=== PATIENT | female | born 1955 | race Caucasian/White ===

== ENCOUNTER 2017-06-14 09:51 | Outpatient (CLI) | payer MEDICARE, MEDICAID ==
[2017-06-14 17:56] LABS: BASOPHILS % (AUTO) 0.8 %; EOSINOPHILS # (AUTO) 0.1 10^3/uL (0.0-0.7); EOSINOPHILS % (AUTO) 2.1 %; HCT - HEMATOCRIT 39.4 % (37.0-47.0); HGB - HEMOGLOBIN 13.2 g/dL (12.0-16.0); LYMPHOCYTES # (AUTO) 1.6 10^3/uL (1.5-3.5); LYMPHOCYTES % (AUTO) 32.8 %; MEAN CORPUSCULAR HEMOGLOBIN 30.1 pg (27.0-31.0); MEAN CORPUSCULAR HGB CONC 33.5 g/dL (32.0-36.0); MEAN CORPUSCULAR VOLUME 89.8 fL (81.0-99.0); MEAN PLATELET VOLUME 8.6 fL (7.9-10.8); MONOCYTES # (AUTO) 0.5 10^3/uL (0.0-1.0); MONOCYTES % (AUTO) 9.8 %; NEUTROPHILS # (AUTO) 2.7 10^3/uL (1.5-6.6); NEUTROPHILS % (AUTO) 54.5 %; RED BLOOD COUNT 4.39 10^6/uL (4.20-5.40); RED CELL DISTRIBUTION WIDTH 13.6 % (12.0-15.0); UNCORRECTED WHITE BLOOD COUNT 4.9 x10^3/uL; WHITE BLOOD COUNT 4.9 x10^3/uL (4.8-10.8)
[2017-06-14 18:13] LABS: ALBUMIN/GLOBULIN RATIO 1.8 (1.0-2.2); BILIRUBIN,TOTAL 0.7 mg/dL (0.2-1.0); CALCIUM 9.3 mg/dL (8.5-10.3); CREATININE 0.7 mg/dL (0.4-1.0); POTASSIUM 4.4 mmol/L (3.5-5.0); TOTAL PROTEIN 6.7 g/dL (6.7-8.2)
== END 2017-06-14 09:52 | disposition home or self-care (01) ==
LOC: LAB.S 09:51
PROVIDERS: ATTEND Nurse Practitioner Family
DX: R10.9 Unspecified abdominal pain (principal)
CPT/HCPCS: 36415; 80053; 85025

== ENCOUNTER 2017-09-28 12:10 | Outpatient (CLI) | payer MEDICARE, MEDICAID | END 2017-09-28 12:11 | disposition home or self-care (01) | LOC: RT.S 12:10 | PROVIDERS: ATTEND Nurse Practitioner Family | DX: I34.1 Nonrheumatic mitral (valve) prolapse (principal) | CPT/HCPCS: 93005 ==

== ENCOUNTER 2020-03-11 09:37 | Outpatient (CLI) | payer MEDICARE, MEDICAID | END 2020-03-11 09:38 | disposition home or self-care (01) | LOC: LAB.S 09:37 | PROVIDERS: ATTEND Registered Nurse | DX: J11.1 Influenza due to unidentified influenza virus with other respiratory manifestations (principal) | CPT/HCPCS: 36415; 86769 ==

== ENCOUNTER 2021-03-11 07:39 | Outpatient (CLI) | payer MEDICARE, MEDICAID ==
[2021-03-11 14:45] LABS: BASOPHILS % (AUTO) 0.8 %; EOSINOPHILS % (AUTO) 0.8 %; HCT - HEMATOCRIT 40.4 % (37.0-47.0); HGB - HEMOGLOBIN 13.1 g/dL (12.0-16.0); LYMPHOCYTES # (AUTO) 1.3 10^3/uL (1.5-3.5); LYMPHOCYTES % (AUTO) 35.7 %; MEAN CORPUSCULAR HEMOGLOBIN 29.4 pg (27.0-31.0); MEAN CORPUSCULAR HGB CONC 32.4 g/dL (32.0-36.0); MEAN CORPUSCULAR VOLUME 90.8 fL (81.0-99.0); MEAN PLATELET VOLUME 10.1 fL (7.9-10.8); MONOCYTES # (AUTO) 0.4 10^3/uL (0.0-1.0); MONOCYTES % (AUTO) 10.8 %; NEUTROPHILS # (AUTO) 1.9 10^3/uL (1.5-6.6); NEUTROPHILS % (AUTO) 51.9 %; PLT - PLATELET COUNT 345 10^3/uL (130-450); RED BLOOD COUNT 4.45 10^6/uL (4.20-5.40); RED CELL DISTRIBUTION WIDTH 13.2 % (12.0-15.0); WHITE BLOOD COUNT 3.6 x10^3/uL (4.8-10.8)
[2021-03-11 15:15] LABS: ALBUMIN 4.5 g/dL (3.2-5.5); ALBUMIN/GLOBULIN RATIO 1.8 (1.0-2.2); ALKALINE PHOSPHATASE 58 IU/L (42-121); ALT ALANINE AMINOTRANSFERASE 17 IU/L (10-60); AST ASPARTATE AMINOTRANSFERASE 24 IU/L (10-42); BUN - BLOOD UREA NITROGEN 14 mg/dL (6-20); CALCIUM 9.2 mg/dL (8.5-10.3); CARBON DIOXIDE - CO2 26 mmol/L (21-32); CHLORIDE 91 mmol/L (101-111); CHOLESTEROL 367 mg/dL; CREATININE 0.7 mg/dL (0.4-1.0); GFR - MDRD 83 (>89); GLUCOSE 89 mg/dL (70-100); HDL CHOLESTEROL 124 mg/dL; LDL CHOLESTEROL,CALCULATED 235 mg/dL; LDL/HDL RATIO 1.9 (<4.4); POTASSIUM 4.5 mmol/L (3.5-5.0); SODIUM 130 mmol/L (135-145); TRIGLYCERIDES 42 mg/dL; VLDL CHOLESTEROL 8 mg/dL
== END 2021-03-11 07:40 | disposition home or self-care (01) ==
LOC: LAB.S 07:39
PROVIDERS: ATTEND Registered Nurse
DX: I34.1 Nonrheumatic mitral (valve) prolapse (principal); R91.8 Other nonspecific abnormal finding of lung field; M79.7 Fibromyalgia; J44.9 Chronic obstructive pulmonary disease, unspecified; F32.9 Major depressive disorder, single episode, unspecified
CPT/HCPCS: 36415; 80053; 80061; 83721; 84443; 85025

== ENCOUNTER 2022-12-21 07:24 | Outpatient (CLI) | payer MEDICARE ==
[2022-12-21 15:18] LABS: BASOPHILS # (AUTO) 0.1 10^3/uL (0.0-0.1); BASOPHILS % (AUTO) 1.6 %; EOSINOPHILS # (AUTO) 0.1 10^3/uL (0.0-0.7); EOSINOPHILS % (AUTO) 1.4 %; HGB - HEMOGLOBIN 13.1 g/dL (12.0-16.0); LYMPHOCYTES # (AUTO) 1.3 10^3/uL (1.5-3.5); LYMPHOCYTES % (AUTO) 35.1 %; MEAN CORPUSCULAR HEMOGLOBIN 29.6 pg (27.0-31.0); MEAN CORPUSCULAR VOLUME 92.6 fL (81.0-99.0); MEAN PLATELET VOLUME 10.3 fL (7.9-10.8); MONOCYTES # (AUTO) 0.4 10^3/uL (0.0-1.0); MONOCYTES % (AUTO) 11.1 %; NEUTROPHILS # (AUTO) 1.9 10^3/uL (1.5-6.6); NEUTROPHILS % (AUTO) 50.8 %; PLT - PLATELET COUNT 360 10^3/uL (130-450); RED BLOOD COUNT 4.43 10^6/uL (4.20-5.40); RED CELL DISTRIBUTION WIDTH 13.4 % (12.0-15.0); WHITE BLOOD COUNT 3.7 x10^3/uL (4.8-10.8)
[2022-12-21 16:36] LABS: ALBUMIN/GLOBULIN RATIO 1.7 (1.0-2.2); ALKALINE PHOSPHATASE 72 IU/L (42-121); ALT ALANINE AMINOTRANSFERASE 18 IU/L (10-60); AST ASPARTATE AMINOTRANSFERASE 23 IU/L (10-42); BILIRUBIN,TOTAL 0.7 mg/dL (0.2-1.0); BUN - BLOOD UREA NITROGEN 15 mg/dL (6-20); CALCIUM 9.8 mg/dL (8.5-10.3); CARBON DIOXIDE - CO2 32 mmol/L (21-32); CHLORIDE 97 mmol/L (101-111); CHOL/HDL RATIO 2.7 (<4.4); CHOLESTEROL 292 mg/dL; CREATININE 0.5 mg/dL (0.4-1.0); GFR - MDRD 122 (>89); GLUCOSE 90 mg/dL (70-100); HDL CHOLESTEROL 107 mg/dL; LDL CHOLESTEROL,CALCULATED 176 mg/dL; LDL/HDL RATIO 1.6 (<4.4); POTASSIUM 4.8 mmol/L (3.5-5.0); SODIUM 135 mmol/L (135-145); TOTAL PROTEIN 6.3 g/dL (6.7-8.2); TRIGLYCERIDES 44 mg/dL; VLDL CHOLESTEROL 9 mg/dL
[2022-12-21 17:04] LABS: THYROID STIMULATING HORMONE 5.42 uIU/mL (0.34-5.60)
== END 2022-12-21 07:25 | disposition home or self-care (01) ==
LOC: LAB.S 07:24
PROVIDERS: ATTEND Registered Nurse
DX: E78.5 Hyperlipidemia, unspecified (principal); Z79.899 Other long term (current) drug therapy
CPT/HCPCS: 36415; 80053; 80061; 83721; 84443; 85025

== ENCOUNTER 2023-11-24 10:14 | Outpatient (CLI) | payer MEDICARE, MEDICAID | END 2023-11-24 23:59 | disposition critical access hospital (66) | LOC: EMS 10:14 | DX: R55 Syncope and collapse (principal); R53.1 Weakness; R09.89 Other specified symptoms and signs involving the circulatory and respiratory systems; R11.0 Nausea; R42 Dizziness and giddiness; R19.7 Diarrhea, unspecified | CPT/HCPCS: A0425; A0427 ==

== ENCOUNTER 2023-11-24 10:50 | Emergency (ER) | payer MEDICARE, MEDICAID ==
[2023-11-24 11:07] LABS: BASOPHILS % (AUTO) 0.6 %; EOSINOPHILS % (AUTO) 0.4 %; HGB - HEMOGLOBIN 14.1 g/dL (12.0-16.0); LYMPHOCYTES # (AUTO) 1.1 10^3/uL (1.5-3.5); LYMPHOCYTES % (AUTO) 19.8 %; MEAN CORPUSCULAR HEMOGLOBIN 30.1 pg (27.0-31.0); MEAN CORPUSCULAR HGB CONC 33.6 g/dL (32.0-36.0); MEAN CORPUSCULAR VOLUME 89.6 fL (81.0-99.0); MEAN PLATELET VOLUME 9.6 fL (7.9-10.8); MONOCYTES # (AUTO) 0.4 10^3/uL (0.0-1.0); MONOCYTES % (AUTO) 7.8 %; NEUTROPHILS # (AUTO) 3.8 10^3/uL (1.5-6.6); NEUTROPHILS % (AUTO) 71.2 %; PLT - PLATELET COUNT 331 10^3/uL (130-450); RED BLOOD COUNT 4.69 10^6/uL (4.20-5.40); RED CELL DISTRIBUTION WIDTH 12.3 % (12.0-15.0); WHITE BLOOD COUNT 5.3 x10^3/uL (4.8-10.8)
[2023-11-24] MEDS: SODIUM CHLORIDE 0.9% 1,000 ML IV STA (11:12)
[2023-11-24] MEDS: PROMETHAZINE INJ 25 MG in SODIUM CHLORIDE 0.9% 50 ML IV STA (11:14)
[2023-11-24 11:20] LABS: ALBUMIN 4.5 g/dL (3.2-5.5); ALBUMIN/GLOBULIN RATIO 1.7 (1.0-2.2); BILIRUBIN,TOTAL 0.5 mg/dL (0.2-1.0); CALCIUM 10.3 mg/dL (8.5-10.3); CREATININE 0.7 mg/dL (0.6-1.3); POTASSIUM 4.5 mmol/L (3.5-4.5); TOTAL PROTEIN 7.1 g/dL (6.4-8.9)
--- NOTE | 2023-11-24 11:57 | ED Physician Documentation ---
History of Present Illness - Stated complaint Stated Complaint: NEAR SYNCOPE - Chief complaint Chief Complaint: Neuro - History obtained from History obtained from: Patient - Additonal information Additional information: The patient comes to the emergency department chief complaint of generalized weakness. She began to have flulike symptoms about 2 weeks ago and she states that since then, she has had a cough and diarrhea. She states that she began to feel as though she was having an MS flare about 5 days ago and that she has been really weak since. She normally walks about 4 miles a day and eats a very healthy diet she states. She states that since she has had this flulike illness, she is only gone walking twice and is afraid she is getting deconditioned. Yesterday, she felt so weak she cannot get out of bed but today, she felt quite a bit better so she thought she would take a walk. However, about half a mile into her walk she began to feel lightheaded and had to stop into a nearby convenience store. The colliery clerk there got her chair and helped her sit down and she never did have a syncopal episode, though she was beginning to "see black". The patient denies any vomiting but has been nauseated. She states she did drink a lot of water yesterday and it seemed to help her sense of weakness. She has drank some water today as well. She has been trying to eat although her appetites been a bit decreased. She says she normally does not like to take steroids but they have been helpful for her MS flares in the past and she is now open to taking them. The patient was given Zofran en-route and this did help her nausea somewhat. No other complaints at this time. PD PAST MEDICAL HISTORY - Past Medical History Past Medical History: Yes Cardiovascular: None Respiratory: COPD Endocrine/Autoimmune: None GI: None HEENT: None Psych: Depression, Post traumatic stress disorder Derm: None - Past Surgical History Past Surgical History: Yes - Present Medications Home Medications: Ambulatory Orders Medication Instructions Recorded Confirmed Albuterol Sulfate [Albuterol 8.5 gm IH DAILY PRN 12/23/14 08/13/16 Sulfate Hfa] Azithromycin [Zithromax] 250 mg PO DAILY #4 tablet 12/23/14 08/13/16 Fluoxetine HCl [Prozac] 60 mg PO DAILY 12/23/14 08/13/16 Triamcinolone Acetonide [Nasacort] 10.8 ml NS DAILY 12/23/14 08/13/16 predniSONE [Prednisone] 60 mg PO DAILY #15 tablet 12/23/14 08/13/16 Fluticasone 110 Mcg [Flovent] 2 puffs INH BID #1 inhaler 08/06/16 08/13/16 predniSONE [Deltasone] 60 mg PO DAILY 11 Days tablet 08/06/16 08/13/16 predniSONE [Deltasone] 10 mg PO [id number] #42 tab 11/24/23 - Allergies Allergies/Adverse Reactions: Allergies Allergy/AdvReac Type Severity Reaction Status Date / Time levofloxacin [From Levaquin] Allergy Anaphylaxis Verified 11/24/23 10:56 Penicillins Allergy Unknown Verified 11/24/23 10:56 - Social History Does the pt smoke?: No Smoking Status: Never smoker Does the pt drink ETOH?: No Does the pt have substance abuse?: No - Immunizations Immunizations are current?: Yes - POLST Patient has POLST: No PD ED PE NORMAL - Vitals Vital signs reviewed: Yes - General General: Alert and oriented X 3, No acute distress, Well developed/nourished - HEENT HEENT: Atraumatic, PERRL, EOMI, Moist mucous membranes - Neck Neck: Supple, no meningeal sign - Cardiac Cardiac: RRR, No murmur - Respiratory Respiratory: No respiratory distress, Clear bilaterally - Abdomen Abdomen: Soft, Non tender, Non distended - Derm Derm: Normal color, Warm and dry, No rash - Extremities Extremities: No deformity, No edema - Neuro Neuro: Alert and oriented X 3, Other (Grossly intact. The patient is able to sit up in bed.) - Psych Psych: Normal mood, Normal affect Results - Vitals Vitals: Vital Signs - 24 hr 11/24/23 11/24/23 10:54 13:00 Temperature 36.2 C L 36.6 C Heart Rate 78 70 Respiratory 16 16 Rate Blood Pressure 146/93 H 143/86 H O2 Saturation 95 98 Oxygen O2 Source Room air - EKG (time done) 1054 EKG releavant findings:: EKG personally interpreted by author of this note. Relevant findings are: Rate: Rate (enter#) (75) Rhythm: NSR [place]: Normal Intervals: Normal AL QRS: Normal Ischemia: Normal ST segments Compare to prior EKG: Old EKG unavailable Computer interpretation: Disagree with computer (. Q waves in lead V2. And very slightly in aVL. No ST-T wave changes. No evidence of infarction at this time.) - Labs Labs: Laboratory Tests 11/24/23 11/24/23 11/24/23 10:53 11:03 11:03 WBC 5.3 RBC 4.69 Hgb 14.1 Hct 42.0 MCV 89.6 MCH 30.1 MCHC 33.6 RDW 12.3 Plt Count 331 MPV 9.6 Neut # (Auto) 3.8 Lymph # (Auto) 1.1 L [place] # (Auto) 0.4 Eos # (Auto) 0.0 Baso # (Auto) 0.0 Absolute Nucleated RBC 0.00 Nucleated RBC % 0.0 Sodium 132 L Potassium 4.5 Chloride 98 L Carbon Dioxide 30 Anion Gap 4.0 L BUN 18 Creatinine 0.7 Estimated GFR (MDRD) 83 L Glucose 85 Calcium 10.3 Total Bilirubin 0.5 AST 19 ALT 12 Alkaline Phosphatase 62 Total Protein 7.1 Albumin 4.5 Globulin 2.6 Albumin/Globulin Ratio 1.7 Lipase 14 Nasal Adenovirus (PCR) NOT DETECTED Nasal B. parapertussis DNA (PCR) NOT DETECTED Nasal Coronavir 229E PCR NOT DETECTED Nasal Coronavir HKU1 PCR NOT DETECTED Nasal Coronavir NL63 PCR NOT DETECTED Nasal Coronavir OC43 PCR NOT DETECTED Nasal Enterovir/Rhinovir PCR NOT DETECTED Nasal Influenza B PCR NOT DETECTED Nasal Influenza A PCR NOT DETECTED Nasal Parainfluen 1 PCR NOT DETECTED Nasal Parainfluen 2 PCR NOT DETECTED Nasal Parainfluen 3 PCR NOT DETECTED Nasal Parainfluen 4 PCR NOT DETECTED Nasal RSV (PCR) NOT DETECTED Nasal B.pertussis DNA PCR NOT DETECTED Nasal C.pneumoniae (PCR) NOT DETECTED Ped[place] Human Metapneumo PCR NOT DETECTED Nasal M.pneumoniae (PCR) NOT DETECTED Nasal SARS-CoV-2 (PCR) NOT DETECTED PD Medical Decision Making - ED course Complexity details: reviewed results, re-evaluated patient, considered differential, d/w patient ED course: The patient was worked up with labs, EKG, resp PCR panel and chest x-ray, and given a liter of 0.9 normal saline. She was also given a dose of Decadron. After receiving the Decadron, the patient seemed to be feeling much better and did report this. She asked approximately 5 times for a cup of coffee and I did go back in and explained to her that I am not going to give her coffee after she is just been nauseated. She had received a dose of Zofran in the ambulance and had requested more nausea medicine when she got here, but refused the dose of Phenergan I ordered for her, due to the possibility that could have some sedating side effects. I told her that given this, I am not going to go given her coffee to drink of all things. If anything, she should can try some ice chips. The patient reported she was feeling better would like to go home. We got her up for a walk test and she did very well with this. Discussed with her the need for follow-up and usual indications for return. I have sent a prescription for a steroid taper to the pharmacy of her choice. Departure - Departure Disposition: Home, Self Care Clinical Impression: Exacerbation of multiple sclerosis, Viral syndrome Condition: Stable Instructions: Multiple Sclerosis Dc, ED Viral Syndrome Prescriptions: predniSONE [Deltasone] 10 mg PO [id number] #42 tab Comments: Your laboratory studies actually look pretty good and your viral panel was negative. Most likely, you have one of the many viruses For which we do not have a test, that can cause symptoms similar to flu. Your potassium is actually normal, which is good. Please be sure to get plenty of fluids to drink. Although you are craving a cup of coffee, this is probably not the best thing to drink when you are nauseated, and may exacerbate your nausea. You should continue to get plenty of fluids and the form of water or other clear liquids and eat plenty of healthful foods. A prescription for your steroid taper has been electronically transmitted to the [facility] in [place]. Forms: PCP List Discharge Date/Time: 11/24/23 13:14
[2023-11-24] MEDS: DEXAMETHASONE 10 MG/ML VIAL IV STA (12:02)
--- NOTE | 2023-11-24 12:34 | XRAY Report ---
PROCEDURE: Chest 1V INDICATIONS: cough/weakness TECHNIQUE: One view of the chest was acquired. COMPARISON: None. FINDINGS: Surgical changes and devices: None. Lungs and pleura: No pleural effusions or pneumothorax. Lungs are clear. Mediastinum: Mediastinal contours appear normal. Heart size is normal. Bones and chest wall: No suspicious bony lesions. Overlying soft tissues appear unremarkable. IMPRESSION: No acute process. Reviewed by: Kaleigh Perry MD on 11/24/2023 12:33 PM PDT Approved by: Kaleigh Perry MD on 11/24/2023 12:33 PM PDT Station ID: [id number]
[2023-11-24 12:48] LABS: B. PARAPERTUSSIS- RESP PCR PAN NOT DETECTED; B. PERTUSSIS- RESP PCR PANEL NOT DETECTED; C. PNEUMONIAE- RESP PCR PANEL NOT DETECTED; CORONAVIRUS 229E-RESP PCR NOT DETECTED; CORONAVIRUS HKU1-RESP PCR NOT DETECTED; CORONAVIRUS NL63-RESP PCR NOT DETECTED; CORONAVIRUS OC43-RESP PCR NOT DETECTED; HUMAN METAPNEUMOVIRUS NOT DETECTED; INFLUENZA A- RESP PCR PANEL NOT DETECTED; INFLUENZA B - RESP PCR PANEL NOT DETECTED; M. PNEUMONIAE- RESP PCR PANEL NOT DETECTED; PARAINFLUENZA VIRUS 1 NOT DETECTED; PARAINFLUENZA VIRUS 2 NOT DETECTED; PARAINFLUENZA VIRUS 3 NOT DETECTED; PARAINFLUENZA VIRUS 4 NOT DETECTED; RHINOVIRUS/ENTEROVIRUS NOT DETECTED; RSV- RESP PCR PANEL NOT DETECTED; SARS-CoV-2 -RESP PCR PANEL NOT DETECTED
[2023-11-24 13:16] VITALS: BP 143/86; O2SAT 98
== END 2023-11-24 13:14 | disposition home or self-care (01) ==
LOC: EDUNIT# → SUPCPDRO 10:50 → ED 10:50
DX: G35 Multiple sclerosis (principal); B34.9 Viral infection, unspecified; J44.9 Chronic obstructive pulmonary disease, unspecified; Z79.899 Other long term (current) drug therapy
CPT/HCPCS: 36415; 80053; 83690; 85025; 87633; 93005; 99284

== ENCOUNTER 2024-02-21 08:33 | Outpatient (CLI) | payer MEDICARE, MEDICAID ==
[2024-02-21 15:21] LABS: BASOPHILS % (AUTO) 1.2 %; EOSINOPHILS % (AUTO) 1.2 %; HCT - HEMATOCRIT 39.2 % (37.0-47.0); LYMPHOCYTES # (AUTO) 1.3 10^3/uL (1.5-3.5); LYMPHOCYTES % (AUTO) 38.5 %; MEAN CORPUSCULAR HGB CONC 33.2 g/dL (32.0-36.0); MEAN CORPUSCULAR VOLUME 90.5 fL (81.0-99.0); MONOCYTES # (AUTO) 0.4 10^3/uL (0.0-1.0); MONOCYTES % (AUTO) 11.7 %; NEUTROPHILS # (AUTO) 1.6 10^3/uL (1.5-6.6); NEUTROPHILS % (AUTO) 47.1 %; PLT - PLATELET COUNT 299 10^3/uL (130-450); RED BLOOD COUNT 4.33 10^6/uL (4.20-5.40); RED CELL DISTRIBUTION WIDTH 12.6 % (12.0-15.0); WHITE BLOOD COUNT 3.4 x10^3/uL (4.8-10.8)
[2024-02-21 15:34] LABS: THYROID STIMULATING HORMONE 4.51 uIU/mL (0.34-5.60)
[2024-02-21 15:36] LABS: ALBUMIN 4.5 g/dL (3.2-5.5); ALBUMIN/GLOBULIN RATIO 1.8 (1.0-2.2); ALKALINE PHOSPHATASE 63 IU/L (42-121); ALT ALANINE AMINOTRANSFERASE 13 IU/L (10-60); AST ASPARTATE AMINOTRANSFERASE 19 IU/L (10-42); BILIRUBIN,TOTAL 0.6 mg/dL (0.2-1.0); BUN - BLOOD UREA NITROGEN 13 mg/dL (6-20); CALCIUM 9.7 mg/dL (8.5-10.3); CARBON DIOXIDE - CO2 29 mmol/L (21-32); CHLORIDE 98 mmol/L (101-111); CHOL/HDL RATIO 2.8 (<4.4); CHOLESTEROL 265 mg/dL; CREATININE 0.7 mg/dL (0.6-1.3); GFR - MDRD 83 (>89); GLUCOSE 88 mg/dL (74-104); HDL CHOLESTEROL 95 mg/dL; LDL CHOLESTEROL,CALCULATED 154 mg/dL; LDL/HDL RATIO 1.6 (<4.4); POTASSIUM 4.7 mmol/L (3.5-4.5); SODIUM 132 mmol/L (135-145); TRIGLYCERIDES 79 mg/dL (48-352); VLDL CHOLESTEROL 16 mg/dL
== END 2024-02-21 08:34 | disposition home or self-care (01) ==
LOC: LAB.S 08:33
PROVIDERS: ATTEND Registered Nurse
DX: Z13.228 Encounter for screening for other metabolic disorders (principal); Z13.220 Encounter for screening for lipoid disorders; Z13.29 Encounter for screening for other suspected endocrine disorder; Z13.0 Encounter for screening for diseases of the blood and blood-forming organs and certain disorders involving the immune mechanism
CPT/HCPCS: 36415; 80053; 80061; 83721; 84443; 85025

== ENCOUNTER 2024-03-14 07:52 | Outpatient (CLI) | payer MEDICARE, MEDICAID ==
--- NOTE | 2024-03-14 12:41 | CT Report ---
PROCEDURE: Head WO INDICATIONS: VISION CHANGES TECHNIQUE: Noncontrast 4.5 mm thick angled axial sections acquired from the foramen magnum to the vertex. For r adiation dose reduction, the following was used: automated exposure control, adjustment of mA and/or kV according to patient size. COMPARISON: None. FINDINGS: Image quality: Excellent. CSF spaces: Basal cisterns are patent. No extra-axial fluid collections. Ventricles are normal in size and shape. Brain: No midline shift. No intracranial masses or hemorrhage. Age-related global volume loss and mild chronic microvascular ischemic changes. Intracranial atherosclerotic vascular calcifications. G ray-white matter interface is normal. Skull and face: Calvarium and visualized facial bones are intact, without suspicious lesions. Sinuses: Visualized sinuses and mastoids are clear. IMPRESSION: No cause for patient's symptoms is identified. No acute intracranial pathology. Reviewed by: Galindo Paredes MD on 03/14/2024 12:40 PM PDT Approved by: Galindo Paredes MD on 03/14/2024 12:40 PM PDT Station ID: [id number]
== END 2024-03-14 07:53 | disposition home or self-care (01) ==
LOC: DI 07:52
PROVIDERS: ATTEND Registered Nurse
DX: H53.9 Unspecified visual disturbance (principal); M54.2 Cervicalgia; G35 Multiple sclerosis

== ENCOUNTER 2024-04-06 10:44 | Outpatient (CLI) | payer MEDICARE, MEDICAID | END 2024-04-06 23:59 | disposition EMS.NT | LOC: EMS 10:44 | DX: R53.1 Weakness (principal); R20.0 Anesthesia of skin ==